=== PATIENT | male | born 2000 | race Caucasian/White ===

== ENCOUNTER 2022-12-07 15:46 | Emergency (ER) | payer OTHER, SELFPAY ==
[2022-12-07 15:56] VITALS: BP 122/94; PULSE 106; RESP 16; TEMP 36.6; O2SAT 99
[2022-12-07 16:00] VITALS: BP 122/94; PULSE 106; RESP 16; TEMP 36.6; O2SAT 99
--- NOTE | 2022-12-07 16:02 | ED.DENTAL ---
HPI - Dental/Oral General Chief complaint: Dental/Oral Stated complaint: mouth pain Time Seen by Provider: 12/07/22 16:02 Source: patient Mode of arrival: ambulatory History of Present Illness HPI Narrative: 22-year-old male presented for complaint of mouth pain for about 1 week. Endorses gums are swollen and bleeding often. No recent antibiotic use or new medication. Plans to f/u with dentist. Denies ulcers, dental pain, n/v/d/f/c. Complaint: tooth pain Related Data Allergies Allergy/AdvReac Type Severity Reaction Status Date / Time No Known Allergies Allergy Unverified 12/07/22 15:51 Review of Systems Review of Systems: CONSTITUTIONAL: Denies body aches, fever, chills ENT: Denies rhinorrhea, congestion, sore throat, or otalgia. Reports gum pain CARDIOVASCULAR: Denies chest pain, palpitations RESPIRATORY: Denies cough or dyspnea. SKIN: Denies rash, itching, or wounds. MUSCULOSKELETAL: Denies myalgia. NEUROLOGIC: Denies headache, numbness, tingling, or weakness. [facility] Past Medical History Medical History (Updated 12/07/22 @ 16:18 by Yahaira Melara APRN) No pertinent past medical history Surgical History Surgical History (Updated 12/07/22 @ 16:18 by Yahaira Melara APRN) History of appendectomy Comments At time of signature, I have reviewed and agree with nursing past medical, surgical, social and family history unless otherwise noted. Please see nursing chart for further information. There is no relevant family history pertinent to the presenting complaint Exam Narrative: GENERAL: Well appearing; no acute distress. HEAD: Normocephalic, atraumatic. EYES: EOMI. No redness or drainage. Conjunctivae normal. ENT: Gingival redness and mild swelling across the front top and bottom, no ulcers to oral mucosa, no active bleeding or dental trauma. Mucous membranes pink and moist. TMs normal bilaterally. Throat normal. Uvula midline. NECK: Normal AROM. No lymphadenopathy. CHEST: No respiratory distress. Clear to auscultation. SKIN: Warm, dry, no rash. Normal skin turgor. NEURO: No focal deficits. Alert and oriented x3. Gait steady. Course Course Emergency Course: Patient is aware of diagnosis, understands and agrees to treatment plan. Anticipatory guidance given. Patient agrees to follow-up as directed and is aware of reasons to seek care at the emergency department. Portions of this record may have been created with voice recognition software Level of Care: Express Care Visit Vital Signs Vital signs: Vital Signs Temperature 97.8 F 12/07/22 15:56 Pulse Rate 106 H 12/07/22 15:56 Respiratory Rate 16 12/07/22 15:56 Blood Pressure 122/94 H 12/07/22 15:56 Pulse Oximetry 99 12/07/22 15:56 Oxygen Delivery Room Air 12/07/22 15:56 Temperature 97.8 F 12/07/22 16:00 Pulse Rate 106 H 12/07/22 16:00 Respiratory Rate 16 12/07/22 16:00 Blood Pressure 122/94 H 12/07/22 16:00 Pulse Oximetry 99 12/07/22 16:00 Oxygen Delivery Room Air 12/07/22 16:00 MDM - Dental/Oral MDM Narrative Medical decision making narrative: There are no focal signs of space occupying lesions that are compromising to the airway. No uvular deviation or soft palate edema. The floor of the mouth is soft with no signs of Khoa's Angina. Patient is without trismus or drooling and able to swallow secretions. Patient is felt appropriate for discharge home with dental follow up as planned. Rx viscous lido and chlorhexadine rinse. Differential Diagnosis Differential diagnosis: Likely gingival abscess, dental caries, toothache, dental abscess and aphthous ulcer Discharge Plan Discharge Clinical Impression: Gingivitis Patient Disposition: Home, Self-Care Condition: Stable Instructions: Gingivitis (ED) Additional Instructions: Use liquid lidocaine as needed for pain as directed May apply heat or ice to the face Gentle brushing and flossing. Rinse mouth with warm salt water at leas
== END 2022-12-07 16:22 | disposition home or self-care (01) ==
PROVIDERS: Emergency Provider Nurse Practitioner Family
DX: K05.10 Chronic gingivitis, plaque induced (principal)
CPT/HCPCS: 99213; G0463